=== PATIENT | female | born 2000 | race African-American/Black ===

== ENCOUNTER 2022-08-20 17:19 | Emergency (ER) | payer SELFPAY ==
[~2022-08-20] VITALS: Ht 170 cm; Wt 65.0 kg
[2022-08-20] MEDS ORDERED: KETOROLAC 60 MG/2 ML VIAL IM STA (17:29)
--- NOTE | 2022-08-20 17:35 | ED General ---
General Chief Complaint: General Problems/Pain Stated Complaint: CP Source of Information: Patient History of Present Illness Date Seen by Provider: Aug 20, 2022 Time Seen by Provider: 17:21 Initial Comments 21-year-old female presenting with complaints of intermittent sharp pains to her chest for the last few weeks. The pain was there when she was coughing. Today the pain has been more constant since this morning. She does have increased pain with cough still. She denies having fever, chills, nasal congestion, productive cough, abdominal pain, nausea, vomiting. There is tenderness to palpation on the chest wall that reproduces her pain that she gets with deep breaths. It is a sharp pain. Its along the upper part of her sternum and right side of the sternum where the ribs attach. She denies any other health problems and does not take any medications with no allergies to medicines. She has not tried taking any medicine for the chest pains. Timing/Duration: Intermittent (over the last few weeks and then more constant today and worse when she takes a deep breath. ) Severity: Mild (4 out of 10) Modifying Factors: worse with Movement (deep breath and cough makes the pain worse) Associated Systoms: Cough; No Diaphoresis, No Fever/Chills, No Headaches, No Loss of Appetite, No Malaise, No Nausea/Vomiting, No Rash, No Seizure, No Shortness of Air, No Syncope, No Weakness Allergies and Home Medications Allergies Coded Allergies: No Known Drug Allergies (Unverified , 08/20/22) Patient Home Medication List Home Medication List Reviewed: Yes Ibuprofen (Ibuprofen) 600 Mg Tablet, 600 MG PO Q6H PRN for PAIN-MILD Prescribed by: JOCE HERCULES on 08/20/22 7155 Review of Systems Review of Systems Constitutional: No chills, No fever EENTM: no symptoms reported Respiratory: see HPI Cardiovascular: see HPI Gastrointestinal: No nausea, No vomiting Genitourinary: no symptoms reported Musculoskeletal: no symptoms reported Skin: No rash Psychiatric/Neurological: No Symptoms Reported Hematologic/Lymphatic: Denies Blood Clots Past Wwcneuu-Slbyoh-Lhpyrm Hx Patient Social History Tobacco Use?: No Use of E-Cig and/or Vaping dev: No Substance use?: No Alcohol Use?: No Physical Exam Vital Signs Vital Signs - First Documented 08/20/22 17:20 Temp 36.8 Pulse 70 Resp 16 B/P (MAP) 135/100 (112) Pulse Ox 100 Capillary Refill : Height, Weight, BMI Height: '" Weight: lbs. oz. kg; BMI Method: General Appearance: No Apparent Distress, WD/WN HEENT: PERRL/EOMI, Pharynx Normal Neck: Full Range of Motion, Normal Inspection, Non Tender, Supple Respiratory: No Chest Non Tender (tender to palpation along right costo-sternal border and where clavicle attaches to manubrium); Lungs Clear, Normal Breath Sounds, No Accessory Muscle Use, No Respiratory Distress Cardiovascular: Regular Rate, Rhythm, No Murmur, Normal Peripheral Pulses Gastrointestinal: Normal Bowel Sounds, No Pulsatile Mass, Non Tender, Soft Extremity: Normal Capillary Refill, Normal Inspection, No Calf Tenderness, No Pedal Edema Neurologic/Psychiatric: Alert, Oriented x3, wire walker II-XII Norm as Tested Skin: Normal Color, Warm/Dry Progress/Results/Core Measures Suspected Sepsis SIRS Temperature: Pulse: Respiratory Rate: Blood Pressure / Mean: Results/Orders My Orders Orders - JOCE HERCULES MD Ketorolac Injection (Toradol Injection) (08/20/22 17:29) Ribs/Bilateral With Chest (08/20/22 17:29) Ibuprofen Tablet (Motrin Tablet) (08/20/22 17:52) Vital Signs/I&O 08/20/22 08/20/22 17:20 18:14 Temp 36.8 36.8 Pulse 70 70 Resp 16 16 B/P (MAP) 135/100 (112) 135/100 Pulse Ox 100 100 Capillary Refill : Progress Note #1: Progress Note Potential diagnosis of costochondritis, chest wall strain, pneumonia, pneumothorax. Ordered Toradol 60 mg IM x1 to help with pain and inflammation. Obtain ribs and chest x-ray to look for acute bony abnormality or signs of pneumonia or pneumothorax. Reassured patient that her lungs sound clear and Oxygen saturation is 100% on room air. Progress Note #2: Progress Note Patient initially had agreed to the shot but then refused when the nurse went in with the medication. Will order ibuprofen to help with the pain and inflammation while waiting on x-rays. My personal interpretation of her x-rays of the bilateral ribs and chest showed no acute fracture, no pneumothorax, no infiltrate. Will proceed with treatment for anti-inflammatories to help with costochondritis. Counseled on alternating ice and heat to the chest wall. Check back with the clinic for continued concerns or if not improving. Diagnostic Imaging Diagonstic Imaging: Xray Plain Films/CT/US/NM/MRI: chest (with ribs) Comments NAME: LAURITA GARDNER [facility] REC#: [id number] PT STATUS: REG ER : 2000 PHYSICIAN: JOCE HERCULES MD ADMIT DATE: 08/20/22/ER FS Draft Date of Exam:08/20/22 RIBS/BILATERAL WITH CHEST EXAM: Ribs/bilateral with chest INDICATION: Chest pain with deep inspiration. COMPARISON: None. FINDINGS: Normal heart size and central pulmonary vascularity. Lungs are clear. No pleural effusion or pneumothorax. No acute osseous finding. IMPRESSION: 1. No acute cardiopulmonary finding. 2. No rib fracture is identified. Dictated on workstation # [id number] Dict: 08/20/221754 Trans: 08/20/221757 [facility] [id number] Interpreted by: MACRINA GARCIA MD Electronically signed by: Reviewed: Reviewed by Me (I reviewed the radiologist report at 181) Departure Impression Primary Impression: Costochondritis, acute Disposition: 01 HOME, SELF-CARE Condition: Stable Departure-Patient Inst. Decision time for Depature: 18:12 Referrals: [facility] [place] Patient Instructions: Costochondritis (DC) Add. Discharge Instructions: The chest wall pain and pain with deep breaths and coughing seems to be from in flammation and strain to the chest wall and cartilage that connects the ribs and collar bones to the sternum or breast bone. Try alternating ice and heat to the chest wall to help with pain and inflammation. Take Ibuprofen 600 mg every 6 to 8 hours as needed for pain and inflammation. Check with clinic if not improving or having worsening symptoms. [facility] here in [place] can be reached by calling [phone] and you could set up an appointment for follow up. All discharge instructions reviewed with patient and/or family. Voiced understanding. Scripts Ibuprofen (Ibuprofen) 600 Mg Tablet 600 MG PO Q6H PRN for PAIN-MILD for 7 Days, #28 TAB 0 Refills Prov: JOCE HERCULES MD 08/20/22 JOCE HERCULES MD Aug 20, 2022 17:35
[2022-08-20] MEDS ORDERED: IBUP-1773 PO (17:41)
[2022-08-20] MEDS ORDERED: IBUPROFEN 600 MG (MOTRIN) TAB PO STA (17:52)
--- NOTE | 2022-08-20 17:58 | Diagnostic Imaging Report ---
EXAM: Ribs/bilateral with chest INDICATION: Chest pain with deep inspiration. COMPARISON: None. FINDINGS: Normal heart size and central pulmonary vascularity. Lungs are clear. No pleural effusion or pneumothorax. No acute osseous finding. IMPRESSION: 1. No acute cardiopulmonary finding. 2. No rib fracture is identified. Dictated by: Dictated on workstation # [id number]
[2022-08-20 18:14] VITALS: BP 135/100
== END 2022-08-20 18:15 | disposition home or self-care (01) ==
LOC: ER FS 17:21
DX: M94.0 Chondrocostal junction syndrome [Tietze] (principal)
CPT/HCPCS: 71111